=== PATIENT | female | born 2005 | race Caucasian/White ===

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

== ENCOUNTER 2025-02-05 11:25 | Emergency (ER) | payer OTHER, SELFPAY ==
--- OUTSIDE RECORDS SUMMARY | 2025-02-05 11:28 | XMS_ITS | Referral Summary ---
Author Organization [facility] [address] Address [address] [place] [address] Phone Care Team Providers Care Sponge Packer Name Role Phone Cleo Smith DO Unavailable [phone] Unknown, Notinfile Primary Care Provider Unavail able Encounters Date Type Department Care Team Description 11/16/2024 Orders Only [facility] [address] [place] [id number] Cleo Smith DO 11/16/2024 10:00 AM ART SUPERVISOR Clinical Support [facility] [address] [facility] [address] [place] [address] Surveillance for Depo-Provera contraception (Primary Dx) from Last 3 Months Allergies No known active allergies Medications PNV #[id number] acid-dha 35 mg iron-5 mg iron-1 mg capsule Take 1 tablet by mouth daily 30 capsule 11 1 Active Additional Information Patient not taking.Reported on 04/02/2022 docusate sodium (COLACE) 100 mg capsuleIndicati ons:constipatio n,Stool Softener Take 1 capsule (100 mg total) by mouth 2 (two) times a day 40 capsule 1 2 Active Additional Information Patient not taking.Reported on 04/02/2022 HYDROcodone-tamia taminophen (NORCO) 5-325 mg per tabletIndicatio ns:Pain Take 1 tablet by mouth every 4 (four) hours as needed for pain 20 tablet 2 Active Additional Information Patient not taking.Reported on 04/02/2022 ibuprofen (ADVIL,MOTRIN) 600 mg tablet Take 1 tablet (600 mg total) by mouth every 6 (six) hours as needed for pain 60 tablet 1 2 Active Additional Information Patient not taking.Reported on 04/02/2022 polyethylene glycol (MIRALAX) 17 gram packetIndicatio ns:constipation Take 1 packet (17 g total) by mouth daily as needed for constipation 15 packet 2 Active Additional Information Patient not taking.Reported on 04/02/2022 Multi-DHA,with vit K, 27 mg iron-800 mcg-260 mg capsule Take 1 tablet by mouth daily 2 Active medroxyPROGESTE Jaiden (DEPO-PROVERA) 150 mg/mL injection Inject 1 mL (150 mg total) into the muscle as instructed every 3 (three) months 1 mL 4 4 Active estradioL (ESTRACE) 2 mg tablet Take 1 tablet (2 mg total) by mouth daily 10 tablet 5 Active Active Problems Problem Noted Date Diagnosed Date Obesity peds (BMI >=95 percentile) 06/19/2022 Social anxiety disorder 05/10/2022 Post- depression 04/26/2022 MALU (generalized anxiety disorder) 04/26/2022 Encounter for supervision of normal first in first trimester 05/25/2021 Overview (12/18/2021): Dated by sure LMP c/w 9 wk US PNL: O+/I/-/-, NR GC/CT: neg UCx: contaminated x2 Pap: not indicated due to age Genetics: quad neg GCT: 112 S/p Tdap GBS: negative Br/Devendra: breast Contraception: undecided Encounter for routine child health examination with abnormal findings 06/15/2020 Resolved Problems Problem Noted Date Diagnosed Date Resolved Date Low back strain, initial encounter 09/28/2020 11/24/2021 Dysmenorrhea 06/15/2020 11/24/2021 Non-recurrent acute suppurat prasanth otitis media of both ears 05/13/2019 11/24/2021 Dysfunction of left eustachian tube 03/05/2019 11/24/2021 Other viral warts 10/22/2018 11/24/2021 Immunizations Immunization Administration Dates Next Due DTaP 5 Pertussis 04/28/2010, 6,2005,2005 ,2005 Hep A, Pediatric 04/28/2010,06/05/2007 Hep B, Adolescent or Pediatric 2005,2004,2005 Hib (HbOC) 05/13/2006,2005,2005 ,2005 IPV 04/28/2010,2005,2005 ,2005 Influenza, Split 04/28/2010 MMR 04/28/2010,02/12/2006 Meningococcal Conjugate (Menveo) 06/15/2020 Pneumococcal Conjugate 7-Valent 05/13/2006,12/06,2005,2005 Tdap 10/31/2021,06/15/2020 Varicella 04/28/2010,02/12/2006 Social History Tobacco Use Types Packs/Day Years Used Date Smoking Tobacco: Never Smokeless Tobacco: Never Tobacco Cessation:Counseling Given: Not Answered Comments No Sex and Gender Information Value Date Recorded Sex Assigned at Not on file Legal Sex Female 1:45 AM ART SUPERVISOR Gender Identity Not on file Sexual Orientation Not on file Last Filed Vital Signs Vital Sign Reading Time Taken Comments Blood Pressure 118/60 02/25/2024 10:09 AM CDT Pulse 84 06/19/2022 10:02 AM CDT Temperature 36.8 C (98.2 F) 01/05/2022 3:35 PM CDT Respiratory Rate 16 01/05/2022 3:35 PM CDT Oxygen Saturation 98% 01/05/2022 4:34 PM CDT Inhaled Oxygen Concentration - - Weight 80.4 kg (177 lb 3.2 oz) 02/25/2024 10:09 AM CDT Height 152.4 cm (5') 02/25/2024 10:09 AM CDT Body Mass Index 34.61 02/25/2024 10:09 AM CDT Plan of Treatment Not on file Procedures Procedure Name Priority Date/Time Associated Diagnosis Comments HEPATITIS C ANTIBODY Routine 05/30/2021 2:37 PM CDT Encounter for supervision of normal first in first trimester N. GONORRHOEAE/C. TRACHOMATIS AMPLIFICATION Routine 05/25/2021 4:19 PM CDT Encounter for supervision of normal first in first trimester from Last 3 Months or Most Recently Relevant to Health Maintenance Results * Hepatitis C antibody (05/30/2021 2:37 PM CDT) Hep C Ab Nonreactive Nonreactive LIUDMILA ALVAREZ Comment: Interpretive Data Nonreactive: Antibodies to HCV not detected. Does NOT exclude the possibility of recent exposure to HCV. Equivocal: Equivocal for HCV antibodies. Supplemental molecular testing will be automatically performed to determine infection status in accordance with current CDC screening recommendations. Reactive: Positive for HCV antibodies. This may represent current or past HCV infection. Supplemental molecular testing will be automatically performed to determine current infection status in accordance with current CDC screening recommendations. Interpretive data was last revised on 2019. Blood 05/30/2021 2:37 PM CDT 05/30/2021 4:57 PM CDT Cleo Smith DO LAB MICROBIOLOGY - GENE [facility] ORDERABLES Final Result LIUDMILA ALVAREZ [id number] [place] [address] * N. gonorrhoeae/C. trachomatis Amplification Endocervical (05/25/2021 4:19 PM CDT) C. trachomatis Not detected Not detected LIUDMILA ALVAREZ N. gonorrhoeae Not detected Not detected LIUDMILA ALVAREZ Comment: Testing performed by the [facility]. This assay detects Chlamydia trachomatis and Neisseria gonorrhoeae by nucleic acid amplification testing (NAAT). This test is approved by the [place] Food and Drug Administration and the performance characteristics have been verified by the laboratory. The performance characteristics of this test have not been evaluated in women or individuals less than 16 years of age. Endocervical (None) 05/25/20 4:19 PM CDT 05/25/2021 8:25 PM CDT Narrative LIUDMILA ALVAREZ - 05/26/2021 1:21 PM CDT z34.01 Cleo Smith DO LAB MICROBIOLOGY - GENE [facility] ORDERABLES Final Result LIUDMILA [id number] [place] [address] from Last 3 Months or Most Recently Relevant to Health Maintenance Insurance Member Subscriber Plan / Payer ( fective 2020-Present) Name:Anne Manuel Relation to Subscriber:Self Name:Anne Manuel Payer ID:[id number] (NAIC) Group ID:Not on file Type:MEDICAID RISK OTHER Address: ATTN: CLAIMS DEPT [address] [facility] [place] [address] [facility] Advance Directives For more information, please contact: [phone] * Full Code (Latest Code Status on File) Date Activated Date Inactivated Comments 01/02/2022 7:10 PM 01/04/2022 10:55 PM * Full Code Date Activated Date Inactivated Comments 01/01/2022 9:59 PM 01/02/2022 7:10 PM Full CPR in case of cardiopulmonary arrest Care Teams Sponge Packer Relationship Specialty Start Date End Date Unknown, Notinfile PCP - General 11/09/24 Cleo Smith DO [address] [place] [address] Consulting Physician Obstetrics and Gynecology 01/04/22
--- OUTSIDE RECORDS SUMMARY | 2025-02-05 11:28 | XMS_ITS | Clinical Summary ---
Author Organization [facility] [address] Address [address] [place] [address] Phone Care Team Providers Care Home Care Specialist Name Role Phone Cleo Smith DO Unavailable [phone] Unknown, Notinfile Primary Care Provider Unavail able Allergies No known active allergies Medications PNV #[id number] acid-dha 35 mg iron-5 mg iron-1 mg [...] 03/05/2019 11/24/2021 Other viral warts 10/22/2018 11/24/2021 Encounters Date Type Department Care Team Description 11/16/2024 10:00 AM COGNOS CONSULTANT Clinical Support [facility] [address] [place] [address] Surveillance for Depo-Provera contraception (Primary Dx) 11/16/2024 Orders Only [address] [phone] Cleo Smith DO from Last 3 Months Immunizations Immunization Administration Dates Next Due DTaP [...] on file Legal Sex Female 1:45 AM COGNOS CONSULTANT Gender Identity Not on file Sexual Orientation Not on file Obstetrics History Para Term AB IAB SAB Ectopic Multiple Livin g Live Births 1 1 1 0 1 1 Date Outcome GA Total Labor Labor/2nd/3rd Weight Sex Type Anes PTL Selina A1 A5 Name Clin 022 Term 39w 6d 0h 01m 0h 01m 3.147 kg (6 lb 15 oz) F CS-LT ranv Gener al,Ep idura l N Livin g 6 9 MORAL ES,GI RLJAD Cleo Tan, DO Complications:Other (Comment ) Delivery Location:This Facil ity ([facility]) Growth Chart Information Age Height Weight [id number]-mdo-uzzd th Percentile BMI Percentile Head Circum Head Circum Percentile Date 19 years 152.4 cm (5') 80.4 kg (177 lb 3.2 oz) 96.83%* 2023 18 years 86.4 kg (190 lb 6.4 oz) 2022 18 years 152.4 cm (5') 83.2 kg (183 lb 6.4 oz) 97.78%* 2022 17 years 152.4 cm (5') 78.6 kg (173 lb 3.2 oz) 97.17%* 2021 17 years 74.2 kg (163 lb 9.6 oz) 2021 17 years 66.9 kg (147 lb 6.4 oz) 2021 16 years 61.6 kg (135 lb 12.8 oz) 2021 16 years 149.9 cm (4' 11.02 ) 70.2 kg (154 lb 12.2 oz) 95.99%* 2021 16 years 72.6 kg (160 lb) 2021 16 years 72.1 kg (159 lb) 2021 16 years 68.8 kg (151 lb 9.6 oz) 2021 16 years 65.3 kg (144 lb) 2021 16 years 66.4 kg (146 lb 6.4 oz) 2021 16 years 64.7 kg (142 lb 9.6 oz) 2021 16 years 63 kg (138 lb 12.8 oz) 2021 16 years 60.9 kg (134 lb 3.2 oz) 2021 16 years 59.1 kg (130 lb 3.2 oz) 2020 16 years 56.9 kg (125 lb 6.4 oz) 2020 16 years 55.7 kg (122 lb 12.8 oz) 2020 16 years 55.7 kg (122 lb 12.8 oz) 2020 16 years 149.9 cm (4' 11 ) 57.1 kg (125 lb 12.8 oz) 87.34%* 2020 15 years 50.3 kg (111 lb) 2020 15 years 150.5 cm (4' 11.25 ) 49 kg (108 lb) 67.53%* 2019 14 years 55.1 kg (121 lb 6.4 oz) 2019 14 years 60.3 kg (133 lb) 2018 14 years 62.6 kg (138 lb) 2018 13 years 60.3 kg (133 lb) 2018 11 years 144.1 cm (4' 8.75 ) 44.7 kg (98 lb 8 oz) 87.19%* 2015 10 years 39.9 kg (88 lb) 2015 9 years 34.9 kg (77 lb) 2013 8 years 127 cm (4' 2 ) 32.7 kg (72 lb) 91.30%* 2013 7 years 24.7 kg (54 lb 8 oz) 2012 7 years 23.6 kg (52 lb) 2012 7 years 23.4 kg (51 lb 8 oz) 2011 7 years 23.1 kg (51 lb) 2011 * [facility] (Girls, 2-20 Years) Last Filed Vital Signs Vital Sign Reading [...] 02/25/2024 10:09 AM CDT Plan of Treatment Health Maintenance Due Date Last Done Comments Depression Screening 2005 HPV Vaccines (1 - 3-dose series) 02/10/2020 Meningococcal B Vaccine (1 of 2 - Standard) 2021 Chlamydia and Gonorrhea (GC/CT) Screening 05/25/2022 05/25/2021 Regular Well Visit/Exam 18-64 02/24/2025 02/25/2024, 02/22/2023 Influenza Vaccine (Season Ended) 2025 04/28/2010 DTaP/Tdap/Td Vaccine (8 - Td or Tdap) 10/31/2031 10/31/2021, 06/15/2020, 04/28/2010, Additional history exists Hepatitis B Screening Completed 2005 , 2005, 2005 Pneumococcal vaccine <65 Completed 006, 2005, 2005, Additional history exists Varicella Vaccines Completed 04/28/2010, 02/12/2006 Meningococcal Vaccine Aged Out 06/15/2020 No khurram casper eligible based on patient's age to complete this topic Hepatitis C Screening Completed 05/30/2021 Procedures Procedure Name Priority Date/Time Associated Diagnosis [...] - GENE RAL ORDERABLES Final Result LIUDMILA ALVAREZ [id number] Department [place] [address] * N. gonorrhoeae/C. trachomatis Amplification Endocervical (05/25/2021 4:19 PM CDT) C. trachomatis Not detected Not detected LIUDMILA N. gonorrhoeae Not detected Not detected LIUDMILA ALVAREZ Comment: Testing performed by the [facility]. This assay detects Chlamydia trachomatis and [...] - GENE RAL ORDERABLES Final Result LIUDMILA [address] Department of Laboratories [place] [phone] from Last 3 Months or Most Recently Relevant to Health Maintenance Insurance [facility] Advance Directives For more information, please contact: [phone] * Full Code (Latest Code Status on File) Date Activated Date Inactivated Comments 01/02/2022 7:10 PM 01/04/2022 10:55 PM * Full Code Date Activated Date Inactivated Comments 01/01/2022 9:59 PM 01/02/2022 7:10 PM Full CPR in case of cardiopulmonary arrest Care Teams Home Care Specialist Relationship Specialty Start Date End Date Unknown, Notinfile PCP - General 11/09/24 Cleo Smith DO [address] [place] [address] Consulting Physician Obstetrics and Gynecology 01/04/22
--- OUTSIDE RECORDS SUMMARY | 2025-02-05 11:28 | XMS_ITS | Clinical Summary ---
Author Organization [facility] Address [address] [place] [address] Care Team Providers Care Reinstatement Clerk Name Role Phone Bran Michelle Sandoval APRN, TENNIS PLAYER Primary Care Provide r Micaela Kolb APRN, DIRECTOR OF MUSIC THERAPY Unavailable [phone] Allergies Active Allergy Reactions Criticality Noted Date Comments Rizatriptan Benzoate Shortness of Breath 2023 Difficulty breathing in, neck felt hot and achy, head throb Medications latanoprost (XALATAN) 0.005 % Solution INSTILL ONE DROP INTO BOTH EYES AT NIGHT 09/18/2024 Active Rimegepant Sulfate (Nurtec) 75 MG TABLET DISPERSIBLEIndi cations:Migrain e Take 75 mg by mouth every 48 hours as needed (migraine). 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 Family History Medical History Relation Name Comments Depression Brother Osteoarthritis Father Congestive Heart Failure Mother Anxiety disorder Sister Relation Name Status Comments Brother Alive Father Alive Mother Alive Sister Alive Social History Tobacco Use Types Packs/Day Years Used Date Smoking Tobacco: Never Smokeless Tobacco: Never Tobacco Cessation:Counseling Given: Not Answered Alcohol Use Standard Drinks/Week Comments No 0 (1 standard drink = 0.6 oz pur e alcohol) Sexually Active Control Partners Comments Yes Male one partner Comments Unknown Sex and Gender Information Value Date Recorded Sex Assigned at Not on file Legal Sex Female 10:52 PM CDT Gender Identity Not on file Sexual Orientation Not on file Last Filed Vital Signs Vital Sign Reading Time Taken Comments Blood Pressure 118/76 10/22/2024 10:38 AM TAIL EDGER Pulse 78 10/22/2024 10:38 AM TAIL EDGER Temperature 36.3 C (97.4 F) 10/22/2024 10:38 AM TAIL EDGER Respiratory Rate 16 10/22/2024 10:38 AM TAIL EDGER Oxygen Saturation 97% 10/22/2024 10:38 AM TAIL EDGER Inhaled Oxygen Concentration - - Weight 88.6 kg (195 lb 6.4 oz) 10/22/2024 10:38 AM TAIL EDGER Height 152.4 cm (5') 10/22/2024 10:38 AM TAIL EDGER Body Mass Index 38.16 10/22/2024 10:38 AM TAIL EDGER Plan of Treatment Health Maintenance Due Date Last Done Comments Hepatitis C Virus (HCV) Screening 2005 Human Papillomavirus (HPV) Immunization (1 - 3-dose series) 02/10/2020 Meningococcal B Immunization (1 of 2 - Standard) 2021 SARS-COV-2 Immunization ( season) 2024 Influenza Immunization (Season Ended) 2025 Respiratory Syncytial Virus (RSV) Immunization (Adult) (1 - 1-dose 75+ series) 02/10/2080 Hepatitis B Immunization Completed 006, 2005, 2005 Pneumococcal Immunization Combined Aged Out 05/13/2006, 2005, 2005, Additional history exists No longer eligible based on patient's age to complete this topic Hepatitis A Immunization Discontinued 010, 04/28/2010, 06/05/2007 Measles Mumps Rubella (MMR) Immunization Discontinued 04/28/2010, 04/28/2010, 02/12/2006 Polio (IPV) Immunization Discontinued 010, 04/28/2010, 2005, Additional history exists Varicella Immunization Discontinued 0, 04/28/2010, 02/12/2006 Meningococcal Immunization (ACWY) Aged Out 06/15/2020 No longer eligible based on patient's age to complete this topic DTaP/Tdap/Td Immunization Discontinued 2021, 06/15/2020, 04/28/2010, Additional history exists TdaP Immunization Completed 10/31/2021, 06/15/2020 Rotavirus Immunization Aged Out No lo nger eligible based on patient's age to complete this topic Goals Goal Patient Goal Type Associated Problems Recent Progress Patient-Stated? Author communicate better with people Behavioral Health On track(2021 3:44 PM TAIL EDGER) Yes Meron Pulliam LCSW anxiety Behavioral Health On track(2021 3:44 PM TAIL EDGER) No Meron Pulliam LCSW Note: Goal/Objective: Increase coping skills. Anticipated Time Frame for Goal Completion: 6 months Goal Reviewed with: patient Readiness to change: Thinking about making a change Department associated with goal: [facility] Steps to achieve goal: will attend counseling/psychotherapy at least 6 sessions at least once monthly, utilizing individual and/or group sessions to express thoughts and feelings. will verbalize understanding of anxiety, ex: causes/contributing and risk factors, prevalence of conditions in the general population. will identify two or more skills to gain peace and relieve stress. Insurance MEDICAID [facility] PLAN MEDICAID [facility] [employer] ID COMMERCIAL GENERIC on file MEDICAID [employer] Care Teams Reinstatement Clerk Relationship Specialty Start Date End Date Michelle Sotomayor APRN, TENNIS PLAYER [address] [place] [address] PCP - General Advanced Practice Nurse 06/30/24 Micaela Kolb APRN, DIRECTOR OF MUSIC THERAPY [address] [place] [address] Nurse Practitioner Advanced Practice Nurse 07/17/24
[2025-02-05 11:30] VITALS: BP 131/73; PULSE 72; RESP 18; TEMP 37.2; O2SAT 100
--- NOTE | 2025-02-05 11:48 | ED_ITS ---
HPI - Skin/Abscess/Foreign Bdy General Chief complaint: Skin/Abscess/Foreign Body Stated complaint: Infected Middle Finger Time Seen by Provider: 02/05/25 11:48 Source: patient Mode of arrival: ambulatory Limitations: no limitations History of Present Illness HPI narrative: 19-year-old female presented for complaint of swelling, pain and green her skin discoloration to the left little finger nail. Onset 4 days. Pt poked the site with a needle 2 days ago with no improvement. Related Data Allergies Allergy/AdvReac Type Severity Reaction Status Date / Time No Known Allergies Allergy Verified 02/05/25 11:42 Review of Systems Review of Systems: CONSTITUTIONAL: Denies body aches, fever, chills, or sweats. EYES: Denies visual changes, redness, or discharge. ENT: Denies rhinorrhea, congestion CARDIOVASCULAR: Denies chest pain, palpitations, or edema. RESPIRATORY: Denies cough or dyspnea. GASTROINTESTINAL: Denies abdominal pain, nausea, vomiting, or diarrhea. SKIN: per HPI MUSCULOSKELETAL: Denies back pain, joint pain, or myalgia. NEUROLOGIC: Denies headache, numbness, tingling, or weakness. [facility] Social History Social History Smoking status: Never smoker Alcohol intake: never Substance use: never Substance use type: does not use Living arrangements: with family Gender identity (if verbalized by the patient): Female Comments At time of signature, I have reviewed and agree with nursing past medical, surgical, social and family history unless otherwise noted. Please see nursing chart for further information. There is no relevant family history pertinent to the presenting complaint Exam Narrative: GENERAL: Well-appearing HEAD: Normocephalic, atraumatic. EYES: conjunctivae clear, and EOMI. ENT: Mucous membranes moist. Oropharynx without edema, erythema or lesions. NECK: Supple. No lymphadenopathy CHEST: Clear to auscultation. HEART: Regular rate and rhythm. SKIN: Warm, dry. Right 3rd digit significant paronychia, green discoloration, tender, localized swelling. NEURO: Alert and oriented x3. Course Course Emergency Course: Patient is aware of diagnosis, understands and agrees to treatment plan. Anticipatory guidance given. Patient agrees to follow-up as directed and is aware of reasons to seek care at the emergency department. Portions of this record may have been created with voice recognition software Level of Care: Express Care Visit Vital Signs Vital signs: Vital Signs Temperature 98.9 F 02/05/25 11:30 Pulse Rate 72 02/05/25 11:30 Respiratory Rate 18 02/05/25 11:30 Blood Pressure 131/73 02/05/25 11:30 Pulse Oximetry 100 02/05/25 11:30 Oxygen Delivery Room Air 02/05/25 11:30 Temperature 98.9 F 02/05/25 11:30 Pulse Rate 72 02/05/25 11:30 Respiratory Rate 18 02/05/25 11:30 Blood Pressure 131/73 02/05/25 11:30 Pulse Oximetry 100 02/05/25 11:30 Oxygen Delivery Room Air 02/05/25 11:30 Reviewed Procedures Abscess I/D left 3rd digit paronychia: Date of Incision: 02/05/25 Technique: needle aspiration (#18g) Irrigation: No Packing used?: none I&D Results: Pus and Blood Complications: pain and other (Pt reported feeling lightheaded after dressing applied. ) Abcess I&D Additional Comments: Large amount of purulent material expressed from the 3rd digit. Procedure stopped due to pt's reports of pain. DAVE and bandaid applied. MDM - Skin/Abscess/Foreign Bdy MDM Narrative Medical decision making narrative: Discussed physical exam findings c/w paronychia. I&D to left 3rd digit tolerated fair; pt reported feeling lightheaded after dressing applied. She was given ice water, cold compresses, and head was lowered. Pts symptoms resolved quickly. Reviewed RX, Advised supportive measures and signs/symptoms to go to the ER. Pt is appropriate for outpt treatment and f/u. Differential Diagnosis Differential diagnosis: Likely abscess of skin or subcutaneous tissue, viral exanthem, dermatophytosis, urticaria, herpes zoster, cellulitis, eczema, insect bites, impetigo and contact dermatitis Discharge Plan Discharge Clinical Impression: Paronychia Patient Disposition: Home Condition: Stable Instructions: Antibiotic Form, Paronychia (ED) Additional Instructions: Soak your finger in warm soapy water 4 times each day. This can help with any additional drainage that needs to come out. Raise your hand above the level of your heart as often as you can. This will help decrease swelling and pain. Keep wound covered while draining, change bandaid at least daily. After wound is healed, apply lotion after you wash your hands to prevent your skin from becoming too dry. (Aquaphor or Eucerin) Tylenol as needed for pain Take antibiotic as directed Please follow-up with your primary care doctor in the next 3 days. go to the ER for any worsening symptoms or concerns Patient Language: [place] Prescriptions: New cephalexin 500 mg capsule 500 mg PO Q6H 7 Days Qty: 28 0RF Follow-up/Referrals: Bran,Michelle Griggs [Primary Care Provider] -
== END 2025-02-05 12:37 | disposition home or self-care (01) ==
PROVIDERS: Emergency Provider Nurse Practitioner Family; PCP Nurse Practitioner
DX: L03.012 Cellulitis of left finger (principal)
CPT/HCPCS: 10060; 99213; G0463